=== PATIENT | male | born 1930 | race Two or more races ===

== ENCOUNTER 2017-12-16 16:10 | Outpatient (CLI) | payer MEDICARE, BC ==
[2017-12-16 17:41] LABS: CREATININE 1.3 mg/dL (0.6-1.3)
== END 2017-12-16 23:59 | disposition home health service (06) ==
LOC: WOU 16:10
PROVIDERS: ATTEND Surgery
DX: S71.111A Laceration without foreign body, right thigh, initial encounter (principal); S51.812A Laceration without foreign body of left forearm, initial encounter; D45 Polycythemia vera; C93.10 Chronic myelomonocytic leukemia not having achieved remission; Z92.21 Personal history of antineoplastic chemotherapy; X58.XXXA Exposure to other specified factors, initial encounter; Y93.9 Activity, unspecified; Y92.89 Other specified places as the place of occurrence of the external cause; Y99.9 Unspecified external cause status; Z79.01 Long term (current) use of anticoagulants; Z95.5 Presence of coronary angioplasty implant and graft; Z96.652 Presence of left artificial knee joint
CPT/HCPCS: 11043; 36415; 82565; 84520; A6402; A6407

== ENCOUNTER 2017-12-17 14:04 | Outpatient (CLI) | payer MEDICARE, BC | END 2017-12-17 23:59 | disposition home or self-care (01) | LOC: CT 14:04 | PROVIDERS: ATTEND Surgery | DX: S71.101A Unspecified open wound, right thigh, initial encounter (principal); L02.413 Cutaneous abscess of right upper limb; M79.89 Other specified soft tissue disorders; X58.XXXA Exposure to other specified factors, initial encounter; Y93.89 Activity, other specified; Y92.89 Other specified places as the place of occurrence of the external cause; Y99.8 Other external cause status | CPT/HCPCS: 73700-TC ==

== ENCOUNTER 2017-12-19 14:20 | Outpatient (CLI) | payer MEDICARE, BC | END 2017-12-19 23:59 | disposition home health service (06) | LOC: WOU 14:20 | PROVIDERS: ATTEND Podiatrist Foot & Ankle Surgery | DX: L02.415 Cutaneous abscess of right lower limb (principal); D45 Polycythemia vera; R53.1 Weakness; Z79.899 Other long term (current) drug therapy; C92.00 Acute myeloblastic leukemia, not having achieved remission; S51.812D Laceration without foreign body of left forearm, subsequent encounter; X58.XXXD Exposure to other specified factors, subsequent encounter | CPT/HCPCS: 11043; A6402; A6407; Z7610 ==

== ENCOUNTER 2018-01-09 14:37 | Outpatient (CLI) | payer MEDICARE, BC | END 2018-01-09 23:59 | disposition home health service (06) | LOC: WOU 14:37 | PROVIDERS: ATTEND Surgery | DX: L02.415 Cutaneous abscess of right lower limb (principal); D45 Polycythemia vera; Z92.21 Personal history of antineoplastic chemotherapy; T81.89XA Other complications of procedures, not elsewhere classified, initial encounter; S51.812D Laceration without foreign body of left forearm, subsequent encounter; X58.XXXD Exposure to other specified factors, subsequent encounter; Z87.891 Personal history of nicotine dependence; C92.00 Acute myeloblastic leukemia, not having achieved remission; Z96.652 Presence of left artificial knee joint; Z95.5 Presence of coronary angioplasty implant and graft; Z79.82 Long term (current) use of aspirin; Z79.899 Other long term (current) drug therapy | CPT/HCPCS: 11043; A6402; A6407; Z7610 ==

== ENCOUNTER 2018-01-16 14:00 | Outpatient (CLI) | payer MEDICARE, BC | END 2018-01-16 23:59 | disposition home health service (06) | LOC: WOU 14:00 | PROVIDERS: ATTEND Surgery | DX: S71.111A Laceration without foreign body, right thigh, initial encounter (principal); X58.XXXA Exposure to other specified factors, initial encounter; Y92.89 Other specified places as the place of occurrence of the external cause; D45 Polycythemia vera; C93.10 Chronic myelomonocytic leukemia not having achieved remission; Z92.21 Personal history of antineoplastic chemotherapy; Z87.891 Personal history of nicotine dependence; R53.1 Weakness | CPT/HCPCS: 11043; A6402; A6407; Z7610 ==

== ENCOUNTER 2018-01-20 13:53 | Outpatient (CLI) | payer MEDICARE, BC | END 2018-01-20 23:59 | disposition home health service (06) | LOC: WOU 13:53 | PROVIDERS: ATTEND Surgery | DX: S71.111A Laceration without foreign body, right thigh, initial encounter (principal); D45 Polycythemia vera; C93.10 Chronic myelomonocytic leukemia not having achieved remission; R53.1 Weakness; Z92.21 Personal history of antineoplastic chemotherapy; X58.XXXA Exposure to other specified factors, initial encounter; Y93.89 Activity, other specified; Y92.89 Other specified places as the place of occurrence of the external cause | CPT/HCPCS: 11043; A6402; A6407; Z7610 ==